=== PATIENT | female | born 1965 | race Caucasian/White ===

== ENCOUNTER 2018-09-21 20:44 | Emergency (ER) | payer BC ==
[2018-09-21] MEDS ORDERED: Acetaminophen 325 MG Tab PO ONE (21:15)
--- NOTE | 2018-09-21 21:16 | EDM.PDOC ---
ED HPI GENERAL MEDICAL PROBLEM - General Chief Complaint: Bite:Animal, Insect Stated Complaint: BUG STING Time Seen by Provider: 09/21/18 21:12 Source of Information: Reports: Patient History Limitations: Reports: No Limitations - History of Present Illness INITIAL COMMENTS - FREE TEXT/NARRATIVE: Patient is a 53-year-old female presents ED complaining of swelling of the left hand along the dorsal side. In addition has some pain along the lateral aspect of the forearm and upper arm. Patient states she was weed eating when she was bit by a mosquito. Patient developed swelling to the hand and states over the next few hours has developed worsening swelling to her hand that extends to her wrist. She has taken benadryl with little to no relief. Patient notes pain with palpation of the lateral aspect of the arm along the forearm and upper arm. she has no decreased ROM of the wrist, elbow, and shoulder. She denies any redness streaking up her arm. No increased warmth noted. No recent trauma that may have precipitatetd this pain. She denies SOB, CP, fever, chills, or any additional complaints. She has a history of MS. Unfortunately patient did drive herself to the ED. Left Shoulder Pain Score (Numeric/FACES): 7 - Related Data Allergies Allergy/AdvReac Type Severity Reaction Status Date / Time bee venom protein (honey bee) Allergy Anaphylactic Verified 09/21/18 22:15 Shock doxycycline Allergy Hives Verified 09/21/18 21:11 methocarbamol Allergy Other Verified 09/21/18 22:15 orphenadrine Allergy Hives Verified 09/21/18 22:15 Penicillins Allergy Anaphylactic Verified 09/21/18 22:15 Shock Home Meds: Home Meds Albuterol Sulfate [Proair Hfa] 2 puff INH BID PRN 09/21/18 [History] Cholecalciferol (Vitamin D3) [Vitamin D3] 2,000 unit PO BID 09/21/18 [History] Famotidine [Pepcid AC] 40 mg PO QAM #5 tablet 09/21/18 [Rx] Fluticasone/Salmeterol [Advair 250-50] 2 puff INH BID 09/21/18 [History] Gabapentin [Neurontin] 100 mg PO 1200 09/21/18 [History] Gabapentin [Neurontin] 200 mg PO BID 09/21/18 [History] Indomethacin [Indocin SR] 75 mg PO DAILY PRN 09/21/18 [History] Meclizine [Antivert] 25 mg PO QID PRN 09/21/18 [History] Potassium Chloride 10 meq PO DAILY 09/21/18 [History] cephALEXin [Keflex] 500 mg PO Q8H 7 Days cap 09/21/18 [Rx] predniSONE [Prednisone] 40 mg PO QAM #6 tablet 09/21/18 [Rx] ED ROS GENERAL - Review of Systems Review Of Systems: ROS reveals no pertinent complaints other than HPI. ED EXAM, ANIMAL BITE - Physical Exam Exam: See Below Exam Limited By: No Limitations General Appearance: Alert, WD/WN, No Apparent Distress Eye Exam: Bilateral Eye: Normal Inspection, PERRL Ears: Hearing Grossly Normal Nose: Normal Inspection Throat/Mouth: Normal Voice, No Airway Compromise Head: Atraumatic, Normocephalic Neck: Normal Inspection, Supple, Non-Tender, Full Range of Motion Respiratory/Chest: No Respiratory Distress, Lungs Clear, Normal Breath Sounds, No Accessory Muscle Use, Chest Non-Tender Cardiovascular: Normal Peripheral Pulses, Regular Rate, Rhythm Peripheral Pulses: 2+: Radial (L) Extremities: Other (Mild swelling noted along the dorsal aspect of the left hand that extends left wrist. Slight increased warmth noted to the dorsal aspect of the hand. No increased warmth noted. No increased redness noted to the left hand nor streaking up her arm. She has full range of motion of the left wrist, elbow, and shoulder. With palpation along the lateral border of the forearm and along the triceps are some tenderness noted. No swelling, bruising, or any other concerning findings.) Neurological: Alert, Oriented, CN II-XII Intact, Normal Cognition, No Motor/ Sensory Deficits Psychiatric: Normal Affect, Normal Mood Skin Exam: Warm/Dry, Other (Very higuera) Course - Vital Signs Last Recorded V/S: Last Vital Signs Temp 97.9 F 09/21/18 21:01 Pulse 73 09/21/18 21:01 Resp 20 09/21/18 21:01 BP 127/83 09/21/18 21:01 Pulse Ox 97 09/21/18 21:01 - Orders/Labs/Meds Labs: Laboratory Tests 09/21/18 09/21/18 Range/Units 21:24 21:24 WBC 10.60 H (3.98-10.04) K/mm3 RBC 4.48 (3.98-5.22) M/mm3 Hgb 15.0 (11.2-15.7) gm/L Hct 43.0 (34.1-44.9) % MCV 96.0 H (79.4-94.8) fl MCH 33.5 H (25.6-32.2) pg MCHC 34.9 (32.2-35.5) g/dl RDW Std Deviation 45.4 (36.4-46.3) fL Plt Count 384 H (182-369) K/mm3 MPV 8.8 L (9.4-12.3) fl Neutrophils % (Manual) 49 (40-60) % Band Neutrophils % 0 (0-10) % Lymphocytes % (Manual) 41 H (20-40) % Atypical Lymphs % 0 % Monocytes % (Manual) 4 (2-10) % Eosinophils % (Manual) 5 (0.7-5.8) % Basophils % (Manual) 1 (0.1-1.2) Platelet Estimate Adequate Plt Morphology Comment Normal RBC Morph Comment Normal Sodium 135 L (136-145) mEq/L Potassium 3.4 L (3.5-5.1) mEq/L Chloride 100 (98-107) mEq/L Carbon Dioxide 23 (21-32) mEq/L Anion Gap 15.4 H (5-15) BUN 2 L (7-18) mg/dL Creatinine 0.7 (0.55-1.02) mg/dL Est Cr Clr Drug Dosing 85.56 mL/min Estimated GFR (MDRD) > 60 (>60) mL/min BUN/Creatinine Ratio 2.9 L (14-18) Glucose 89 (74-106) mg/dL Calcium 8.9 (8.5-10.1) mg/dL Total Bilirubin 0.2 (0.2-1.0) mg/dL AST 17 (15-37) U/L ALT 14 (14-59) U/L Alkaline Phosphatase 110 (46-116) U/L C-Reactive Protein < 0.2 (<1.0) mg/dL Total Protein 7.5 (6.4-8.2) g/dl Albumin 3.9 (3.4-5.0) g/dl Globulin 3.6 gm/dL Albumin/Globulin Ratio 1.1 (1-2) Meds: Medications Discontinued Medications Generic Name Dose Route Start Last Admin Trade Name Abigail PRN Reason Stop Dose Admin Acetaminophen 975 mg 09/21/18 21:15 09/21/18 21:30 Tylenol PO 09/21/18 21:16 Not Given NOW ONE - Re-Assessments/Exams Free Text/Narrative Re-Assessment/Exam: Patient is concerned she has a infection. Based on examination their is only mild swelling with mild to moderate pain on exam. No obvious redness present. Minimal pain with palpation of the lateral aspect of the forearm and triceps region with no decreased ROM of noted. I suspect patient is sore from weed eating. She has taken benadryl already. Will obtain some basic labs. I have ordered tylenol PO. Labs reviewed: White blood cell count 10.60, hemoglobin 15.0, platelet count 384. No neutrophilia or left shift. Sodium 135, potassium 3.4, AG 15.4, creatinine 0.7, CRP normal. I suspect the cause of the recent swelling and discomfort is due to the allergic reaction of being bitten by a bug. Patient suspects it was a mosquito. She is also concerned there is an infection. At this point I do not suspect a infection is present. She has history of severe allergies to bug bites. I have discussed lab results with patient. I have elected to discharge patient home on a short course of Keflex. She has taken Keflex in the past with no history of adverse side effects. In addition she will be discharged home with short course of prednisone 40 mg a day for the next 3 days. She was instructed to take Pepcid 40 mg every day for the next 5 days as well. Return precautions were discussed with the patient. Patient had no further questions or concerns and agreed with plan. Departure - Departure Time of Disposition: 22:44 Disposition: Home, Self-Care 01 Condition: Good Clinical Impression: Bug bite of left hand Qualifiers: Encounter type: initial encounter Qualified Code(s): S60.562A - Insect bite ( nonvenomous) of left hand, initial encounter; W57.XXXA - Bitten or stung by nonvenomous insect and other nonvenomous arthropods, initial encounter - Discharge Information Prescriptions: cephALEXin [Keflex] 500 mg PO Q8H 7 Days cap Famotidine [Pepcid AC] 40 mg PO QAM #5 tablet predniSONE [Prednisone] 40 mg PO QAM #6 tablet Instructions: Insect Bite, Adult, [id number] Referrals: Jensen Garcia MD [Primary Care Provider] - Forms: ED Department Discharge Additional Instructions: Take the keflex, prednisone, and pepcid as prescribed. Utilize tylenol and ibuprofen in alternating fashion for pain. Return to the E.D. if you develop any new or worsening symptoms.
== END 2018-09-21 23:10 | disposition home or self-care (01) ==
LOC: JD.ED 20:44
DX: S60.562A Insect bite (nonvenomous) of left hand, initial encounter (principal); Z79.899 Other long term (current) drug therapy; Z91.030 Bee allergy status; Z88.0 Allergy status to penicillin; Z88.8 Allergy status to other drugs, medicaments and biological substances; W57.XXXA Bitten or stung by nonvenomous insect and other nonvenomous arthropods, initial encounter
CPT/HCPCS: 36415; 80053; 85007; 85027; 86140; 99283